=== PATIENT | female | born 1995 | race Caucasian/White ===

== ENCOUNTER 2017-01-22 13:51 | Emergency (ER) | payer MEDICAID, OTHER ==
[~2017-01-22] VITALS: Ht 157.5 cm; Wt 42.5 kg
[2017-01-22 13:55] VITALS: Ht 157.5 cm; Wt 42.5 kg
--- NOTE | 2017-01-22 15:15 | ERD ---
ER Documentation Chief Complaint Date/Time DATE: 01/22/17 TIME: 15:12 Chief Complaint BLISTERS IN MOUTH X 1 MONTH. NO EATING X 3 DAYS HPI This is a 21-year-old female who presents the emergency department today complaining of sores in her mouth for the past month. States she went to her doctor and was given 2 medications but they are not helping. States she is unsure if she has had a fever. States that she is having difficulty eating. Denies being sexually active. ROS All systems reviewed and are negative except as per history of present illness. Medications Home Meds Active Scripts Hydrocodone/Acetaminophen (Jackson 5-325 Tablet) 1 Each Tablet, 1 TAB PO Q6H Y for PAIN, #12 TAB Prov:DUNG BENNETT PA-C 01/22/17 Prednisone* (Prednisone*) 20 Mg Tab, 40 MG PO DAILY for 4 Days, TAB Prov:PRODUNG ORR PA-C 01/22/17 Acyclovir* (Zovirax*) 800 Mg Tablet, 400 MG PO 5 TIMES DAILY for 7 Days, TAB Prov:DUNG BENNETT PA-C 01/22/17 Electrolyte,Oral (Pedialyte) 1,000 Ml Solution, 100 ML PO Q6 Y for FEVER, #1000 ML Prov:DUNG BENNETT PA-C 01/22/17 Allergies Allergies: Coded Allergies: No Known Allergy (Unverified , 05/20/15) PMhx/Soc History of Surgery: No Anesthesia Reaction: No Hx Neurological Disorder: No Hx Respiratory Disorders: No Hx Cardiac Disorders: No Hx Psychiatric Problems: No Hx Miscellaneous Medical Probl: No Hx Alcohol Use: No Hx Substance Use: No Hx Tobacco Use: No Physical Exam Vitals Vital Signs Date Time Temp Pulse Resp B/P Pulse Ox O2 Delivery O2 Flow Rate FiO2 01/22/17 13:55 98.6 74 18 107/69 99 Physical Exam Const: NAD Head: Atraumatic Eyes: Normal Conjunctiva ENT: Normal External Ears, Nose and Mouth. Oropharynx with multiple on her tongue, soft palate and posterior pharynx. Neck: Full range of motion..~ No meningismus. Resp: Clear to auscultation bilaterally Cardio: Regular rate and rhythm, no murmurs Abd: Soft, non tender, non distended. Normal bowel sounds Skin: No petechiae or rashes Back: No midline or flank tenderness Ext: No cyanosis, or edema Neur: Awake and alert Psych: Normal Mood and Affect Procedures/MDM This 21-year-old female who presents emergency department today for sores in her mouth for the past month. She did see her primary care doctor and was given a prescription for nystatin and Tylenol with no improvement in symptoms. On exam patient has multiple sores on her tongue, soft palate, posterior pharynx. At this time is consistent with gingival stomatitis. Patient denies any other symptoms. Patient is afebrile and otherwise well-appearing. Low suspicion for sepsis, severe dehydration. Dr. Gonzalez is seen and evaluated the patient is recommended a prescription for acyclovir and prednisone. Patient was also given a prescription for Jackson, Magic mouthwash, Pedialyte. At this time the patient is stable for discharge and outpatient management. Patient should follow up with their PCP in the next 1-2 days. They may return to the emergency department sooner for any persistent or worsening of symptoms. Patient understood and agreed with the plan. Departure Diagnosis: Primary Impression: Mouth sores Condition: Fair DUNG BENNETT PA-C Jan 22, 2017 15:15
[2017-01-22] MEDS ORDERED: ELEC100080 PO (15:19)
[2017-01-22] MEDS ORDERED: PRED20TA PO (15:20)
[2017-01-22] MEDS ORDERED: ACYC800T57 PO (15:20)
[2017-01-22] MEDS ORDERED: HYDR-906 PO (15:21)
== END 2017-01-22 16:02 | disposition home or self-care (01) ==
LOC: FTE 13:51
DX: K13.79 Other lesions of oral mucosa (principal)
CPT/HCPCS: 99284